=== PATIENT | male | born 1975 | race African-American/Black ===

== ENCOUNTER 2019-04-17 00:12 | Emergency (ER) | payer OTHER ==
[~2019-04-17] VITALS: Ht 180.3 cm; Wt 88.9 kg
[2019-04-17] MEDS ORDERED: BACITRACIN15 GM TOPIC (01:15)
[2019-04-17] MEDS ORDERED: CEPHALEXIN500 MG ORAL (01:15)
--- NOTE | 2019-04-17 01:19 | NUR ---
ED Nurse Note: PT SEEN BY MD AND BEING D/C TO HOME, P-T HERE WITH C/O LESION ON PENIS FOR 2 WEEKS, DENIES FEVERS, CP, SOB, OR ANY OTHER COMPLAINTS, PT IS AMBULATORY, GIVEN F/U INFO, AFTER CARE INSTRUCTIONS AND RE-VERBALIZES PROPER MEDICATION ADMINISTRATION, NAD NOTED DURING D/C TO HOME.
[2019-04-17 01:21] VITALS: BP 130/90
--- NOTE | 2019-04-17 06:56 | Emergency Room Report ---
History of Present Illness General Chief Complaint: Male Urogenital Problems Source: Patient Present Illness HPI 43-year-old male presents ED for evaluation. Patient states there is a wound to his penis. Occurred after having sex 2 weeks ago. States he does not believe it is healing because he is a diabetic. Denies any pain. Denies any discharge. Denies any fevers or chills. No other aggravating or relieving factors. Denies any other associated symptoms Allergies: Coded Allergies: No Known Allergies (Unverified , 04/17/19) Patient History Past Medical History: DM Pertinent Family History: none Social History: Denies: smoking, alcohol use, drug use Immunizations: UTD Reviewed Nursing Documentation: PMH: Agreed; PSxH: Agreed Nursing Documentation-PMH Hx Diabetes: Yes Review of Systems All Other Systems: negative except mentioned in HPI Physical Exam Vital Signs Date Time Temp Pulse Resp B/P (MAP) Pulse Ox O2 Delivery O2 Flow Rate FiO2 04/17/19 00:45 98.2 82 17 130/90 (103) 97 Room Air Sp02 EP Interpretation: reviewed, normal General Appearance: no apparent distress, alert, GCS 15, non-toxic Head: normocephalic Eyes: bilateral eye normal inspection, bilateral eye PERRL ENT: normal ENT inspection Neck: normal inspection Respiratory: normal inspection Cardiovascular #1: normal inspection Gastrointestinal: normal inspection Rectal: deferred Genitourinary: no CVA tenderness, other - wound to shaft of penis. no erythema/ induration Musculoskeletal: normal inspection Neurologic: alert, oriented x3, responsive, motor strength/tone normal, sensory intact, speech normal Psychiatric: normal inspection Skin: normal inspection Lymphatic: normal inspection Medical Decision Making Diagnostic Impression: Primary Impression: Abrasion of penis with infection Qualified Codes: S30.812A - Abrasion of penis, initial encounter; N48.29 - Other inflammatory disorders of penis ER Course Hospital Course 43-year-old male presents to ED with wound to penis Differential diagnoses include: Cellulitis, dermatitis, insect bite, abscess Clinical course Patient placed on stretcher. After initial history, physical exam reveals a male in no acute distress. On exam there a abrasion noted to the shaft of the penis. Does not appear to be healing at this time. No discharge. Given history of diabetes will discharge on antibiotics. Patient agrees with plan. Safe for discharge for close outpatient follow-up. Will provide referrals Diagnosis - abrasion of penis with infection stable and discharged to home with prescription for keflex, bacitracin. Instructed to followup with PMD. Instructed return to ED if symptoms recur or worsen Last Vital Signs Date Time Temp Pulse Resp B/P (MAP) Pulse Ox O2 Delivery O2 Flow Rate FiO2 04/17/19 01:21 98.2 17 130/90 97 Room Air 04/17/19 00:45 82 Status: improved Disposition: HOME, SELF-CARE Condition: Stable Scripts Cephalexin* (KEFLEX*) 500 Mg Capsule 500 MG ORAL EVERY 6 HOURS for 7 Days, CAP Prov: Shadi Quispe MD 04/17/19 Bacitracin (Bacitracin) 28.4 Gm Oint...g. 1 APPLIC TOPIC THREE TIMES A DAY, #28.4 GM Prov: Shadi Quispe MD 04/17/19 Referrals: FARSHAD STORY,REFERRING (PCP) Craig Mattson [facility]. [facility] Patient Instructions: Abrasion, [id number] Shadi Quispe MD Apr 17, 2019 06:56
== END 2019-04-17 01:25 | disposition home or self-care (01) ==
LOC: EMR 01:22
DX: S30.812A Abrasion of penis, initial encounter (principal); E11.9 Type 2 diabetes mellitus without complications; X58.XXXA Exposure to other specified factors, initial encounter; Y92.9 Unspecified place or not applicable
CPT/HCPCS: 99282

== ENCOUNTER 2019-05-02 08:27 | Emergency (ER) | payer OTHER ==
[~2019-05-02] VITALS: Ht 180.3 cm; Wt 101.2 kg
[~2019-05-02 08:27] MED LIST: BACITRACIN15 GM TOPIC; CEPHALEXIN500 MG ORAL
[2019-05-02 08:52] VITALS: BP 126/84
--- NOTE | 2019-05-02 08:53 | NUR ---
ED Nurse Note: pt came in due to previous uti and was prescribed keflex and bacitracin ointment and claims that it didnt help. pt denies pain. ermd on bedside. will continue to monitor.
[2019-05-02] MEDS ORDERED: MUPIROCIN22 GM TOPIC (09:09)
[2019-05-02 09:13] VITALS: BP 126/84
--- NOTE | 2019-05-02 09:13 | NUR ---
ER DISCHARGE NOTE: Patient is cleared to be discharged per ERMD, pt is aox4, on room air, with stable vital signs. pt was given dc and prescription instructions, pt was able to verbalize understanding, pt id band removed without complications. pt is able to ambulate with steady gait. pt took all belongings.
--- NOTE | 2019-05-02 11:07 | Emergency Room Report ---
History of Present Illness General Chief Complaint: Medication Refill Source: Patient Present Illness HPI 43-year-old male presents ED for evaluation. Patient is here for a refill of his prescription. Was prescribed antibiotics for a abrasion on his penis. Was seen here on April 17. Was prescribed Keflex and retracing. States that it is overall improved but feels that he needs more treatment. Denies any pain. Denies any itchiness. Is a diabetic but states his sugars are well controlled. Denies any dysuria or urethral discharge. No other aggravating or relieving factors. Denies any other associated symptoms Allergies: Coded Allergies: No Known Allergies (Unverified , 04/17/19) Patient History Past Medical History: DM Past Surgical History: none Pertinent Family History: none Social History: Denies: smoking, alcohol use, drug use Immunizations: UTD Reviewed Nursing Documentation: PMH: Agreed; PSxH: Agreed Nursing Documentation-PMH Past Medical History: No History, Except For Hx Diabetes: Yes - type 1 Review of Systems All Other Systems: negative except mentioned in HPI Physical Exam Vital Signs Date Time Temp Pulse Resp B/P (MAP) Pulse Ox O2 Delivery O2 Flow Rate FiO2 05/02/19 08:41 98.1 72 20 126/84 (98) 99 Room Air Sp02 EP Interpretation: reviewed, normal General Appearance: no apparent distress, alert, GCS 15, non-toxic Head: normocephalic Eyes: bilateral eye normal inspection, bilateral eye PERRL ENT: normal ENT inspection Neck: normal inspection Respiratory: normal inspection Cardiovascular #1: normal inspection Gastrointestinal: normal inspection Rectal: deferred Genitourinary: no CVA tenderness, other - healing abrasion to shaft of penis Musculoskeletal: normal inspection Neurologic: alert, oriented x3, responsive, motor strength/tone normal, sensory intact, speech normal Psychiatric: normal inspection Skin: normal inspection Lymphatic: normal inspection Medical Decision Making Diagnostic Impression: Primary Impression: Visit for wound check Additional Impression: Abrasion of penis with infection Qualified Codes: S30.812D - Abrasion of penis, subsequent encounter; N48.29 - Other inflammatory disorders of penis ER Course Hospital Course 43-year-old M presents to ED for wound check. abrasion to penis Clinical course Patient placed on stretcher. There is a healing abrasion to the shaft of the penis. No erythema or induration. No fluctuance or discharge. I saw this patient on prior visit. To me this is markedly improved. I see no reason to continue antibiotics at this time. No indication for I&D. Reassurance given to patient. Safe for discharge with close outpatient follow- up. States he has a PMD Diagnosis - visit for wound re-check, abrasion of penis Stable and discharged to home with Rx Mupirocin. Followup with PMD. Return to ED if any signs of infection develop Last Vital Signs Date Time Temp Pulse Resp B/P (MAP) Pulse Ox O2 Delivery O2 Flow Rate FiO2 05/02/19 09:13 98.1 78 20 126/84 99 Room Air Status: improved Disposition: HOME, SELF-CARE Condition: Stable Scripts Mupirocin* (MUPIROCIN*) 22 Gm Oint...g. 1 APPLIC TOPIC THREE TIMES A DAY, #22 GM Prov: Shadi Quispe MD 05/02/19 Patient Instructions: Wound Check Shadi Quispe MD May 02, 2019 11:07
== END 2019-05-02 09:13 | disposition home or self-care (01) ==
LOC: EMR 09:01
DX: S30.812D Abrasion of penis, subsequent encounter (principal); X58.XXXD Exposure to other specified factors, subsequent encounter; E10.8 Type 1 diabetes mellitus with unspecified complications
CPT/HCPCS: 99282